=== PATIENT | female | born 1985 | race Caucasian/White ===

== ENCOUNTER 2018-02-23 19:02 | Emergency (ER) | payer MEDICAID, OTHER ==
[2018-02-23 19:03] VITALS: BMI 28.4
[2018-02-23 19:18] VITALS: BP 100/66; PULSE 93; RESP 20; TEMP 97.7; O2SAT 100
--- NOTE | 2018-02-23 20:03 | C.PDOC ---
History Of Present Illness 32 year old female presents to the ED complaining of runny and stuffy nose, jaw pain, and watery eyes. Denies any fever, cough, throat pain, ear pain, n/v/d, or any other symptoms. Denies any sick contacts or recent travels. Reports she has been taking Robitussin with minimal relief. Time Seen by Provider: 02/23/18 19:42 Chief Complaint (Nursing): Cough, Cold, Congestion History Per: Patient History/Exam Limitations: no limitations Onset/Duration Of Symptoms: Days Current Symptoms Are (Timing): Still Present Recent travel outside of the [place]: No Past Medical History Reviewed: Historical Data, Nursing Documentation, Vital Signs Vital Signs: Last Vital Signs Temp 97.7 F 02/23/18 19:14 Pulse 93 H 02/23/18 19:14 Resp 20 02/23/18 19:14 BP 100/66 02/23/18 19:14 Pulse Ox 100 02/23/18 19:14 - Medical History PMH: Anemia, Anxiety, Gall Bladder Disease, Hypercholesterolemia, Sleep Apnea (NO CPAP UNSURE) Denies: Chronic Kidney Disease Surgical History: Appendectomy, Cholecystectomy (September 2015), Endoscopy Denies: Pacemaker - [facility] Procedures CLOS REDUCT TM DISLOCAT (08/27/14) ESOPHAGOGASTRODUODENOSCOPY [EGD] W/CLOSED BIOPSY (08/27/14) INCISION PILONIDAL SINUS (09/27/13) INJECT/INFUSE NEC (08/27/14) LAPAROSCOPIC VERTICAL (SLEEVE) GASTRECTOMY (12/08/14) OTHER GASTROSCOPY (12/08/14) Family History: States: No Known Family Hx - Social History Hx Tobacco Use: No Hx Alcohol Use: Yes Hx Substance Use: No - Immunization History Hx Tetanus Toxoid Vaccination: No Hx Influenza Vaccination: No Hx Pneumococcal Vaccination: No Review Of Systems Except As Marked, All Systems Reviewed And Found Negative. Constitutional: Negative for: Fever, Chills Eyes: Positive for: Other (watery eyes) ENT: Positive for: Nose Congestion, Other (jaw pain ). Negative for: Ear Pain, Throat Pain Respiratory: Negative for: Cough Gastrointestinal: Negative for: Nausea, Vomiting, Diarrhea Physical Exam - Physical Exam Appears: Non-toxic Skin: Warm, Dry Head: Normacephalic Eye(s): bilateral: Normal Inspection Nose: Discharge (clear) Oral Mucosa: Moist Tongue: Normal Appearing Lips: Normal Appearing Gingiva: Normal Appearing Throat: Normal, No Erythema, No Exudate Neck: Normal ROM, Supple Chest: Symmetrical Cardiovascular: Rhythm Regular Respiratory: Normal Breath Sounds, No Rales, No Rhonchi, No Wheezing Gastrointestinal/Abdominal: Soft, No Tenderness Extremity: Normal ROM Neurological/Psych: Oriented x3, Normal Speech Gait: Steady ED Course And Treatment O2 Sat by Pulse Oximetry: 100 (RA) Pulse Ox Interpretation: Normal Medical Decision Making Medical Decision Making: Plan - Motrin 600mg PO - Sudafed 60mg PO On re-examination, patient is resting comfortably in no acute distress. Patient reports improvement of symptoms. Patient given follow up instructions. Instructed to return to ER if symptoms worsen or new symptoms arise. Disposition Counseled Patient/Family Regarding: Diagnosis, Need For Followup, Rx Given - Disposition Referrals: Non [facility] Provider, [Non-Staff] - Disposition: HOME/ ROUTINE Disposition Time: 20:00 Condition: STABLE Additional Instructions: FOLLOW UP WITH PMD IN 1-2 DAYS FOR RE-EVALUATION. TAKE TYLENOL SINUS SEVERE PAIN RELIEVER CAPLETS NEEDED FOR PAIN AND FEVER. IF SYMPTOMS GET WORSE OR ANY NEW CONCERNING SYMPTOMS DEVELOP RETURN TO ED. Instructions: Viral Upper Respiratory Infection, Adult (DC), Upper Respiratory Infection (ED) Forms: [employer] (Urdu) - Clinical Impression Clinical Impression: Upper respiratory infection - PA / [employer] / Resident Statement MD/DO has reviewed & agrees with the documentation as recorded. - Scribe Statement The provider has reviewed the documentation as recorded by the Scribe Shani Balbuena All medical record entries made by the Scribe were at my direction and personally dictated by me. I have reviewed the chart and agree that the record accurately reflects my personal performance of the history, physical exam, medical decision making, and the department course for this patient. I have also personally directed, reviewed, and agree with the discharge instructions and disposition.
== END 2018-02-23 20:06 | disposition home or self-care (01) ==
LOC: C.ER 19:02
DX: J06.9 Acute upper respiratory infection, unspecified (principal)